=== PATIENT | female | born 1955 | race Caucasian/White ===

== ENCOUNTER 2018-05-03 10:43 | Emergency (ER) | payer MEDICAID, OTHER ==
[~2018-05-03] VITALS: Ht 162.6 cm; Wt 79.5 kg
[2018-05-03 11:00] VITALS: BP 160/77
[2018-05-03] MEDS ORDERED: ZOLP-413 PO (11:18)
== END 2018-05-03 12:36 | disposition home or self-care (01) ==
LOC: ED 12:27
DX: S22.080A Wedge compression fracture of T11-T12 vertebra, initial encounter for closed fracture (principal); M47.892 Other spondylosis, cervical region; V23.4XXA Motorcycle driver injured in collision with car, pick-up truck or van in traffic accident, initial encounter; Y93.89 Activity, other specified; Y99.8 Other external cause status; Y92.410 Unspecified street and highway as the place of occurrence of the external cause
CPT/HCPCS: 71046; 72050; 99284